=== PATIENT | male | born 1995 | race African-American/Black ===

== ENCOUNTER → 2021-04-09 | Outpatient (CLI) | payer BC, MEDICAID ==
--- NOTE | 2021-04-09 16:58 | CARD ---
MR#: [id number] Date of Study: 04/09/2021 Ordering Physician: KATELYNN MONTALVO, Referring Physician: KATELYNN MONTALVO, Tech: Shalini Lemus [facility] APPROVED REPORT INDICATION Abnormal ECG Reason : Abnormal EKG PROCEDURE The patient underwent an Exercise Stress Test using the Kris Protocol. Blood pressure, heart rate, a nd EKG were monitored. An Echocardiogram was performed by radio/tv technician in four stages in quad fashion. At peak stress four se lected images were obtained and placed side by side with resting images for comparison. STRESS ECHO FINDINGS The resting Echocardiogram showed normal left ventricular systolic contractility with an estimated Ej ection Fraction of about 60 %. The Stress Echocardiogram showed normal augmentation of myocardial wall segments using a 16 segment m dipak. Test Type: Exercise Stress Nurse/Tech: Ida Dang R.N. Test Indications: abnormal ECG Cardiac History and Allergies: none Medications: none Medical History: see ehr Resting ECG: sr Resting Heart Rate: 60 bpm Resting Blood Pressure: 115/50mmHg Pretest Chest Pain: None Nurse/Tech Notes lungs cta, radial pulse irregular Stress Symptoms No chest pain or symptoms. POST EXERCISE Reason for Termination: Reached target heart rate Target HR: Yes Max HR: 197 bpm 101% of Maximum Predicted HR: 197 bpm Exercise duration: 15:01 min:sec, 5 Stage Exercise capacity: 14.8METs Max Blood Pressure: 118/40mmHg Heart Rate response to exercise: normal Chest Pain: No. Arrhythmia: No. ST Change: No. INTERPRETATION Stress EKG Conclusion: Baseline EKG showed sinus rhythm. No ischemic changes at peak stress. No arr hythmias. <Conclusion> Treadmill exercise stress echocardiogram did not show any evidence of ischemia or infarct. Normal left ventricle systolic function with ejection fraction estimated at 60%. Patient had good activity tolerance. Low risk for cardiac events. Signed by : Kevon Carlson Electronically Approved : 04/09/2021 16:57:50
== END ==
LOC: ECHO 13:49
PROVIDERS: ATTEND Internal Medicine Cardiovascular Disease
DX: R94.31 Abnormal electrocardiogram [ECG] [EKG] (principal)
CPT/HCPCS: 93017; 93350